=== PATIENT | male | born 1990 | race African-American/Black ===

== ENCOUNTER 2021-06-29 13:02 | Emergency (ER) | payer OTHER ==
[~2021-06-29] VITALS: Ht 187.9 cm; Wt 78.4 kg
--- NOTE | 2021-06-29 13:30 | ED Abdominal Pain ---
General Chief Complaint: Abdominal/GI Problems Stated Complaint: ABDOMINAL PROTRUSION/PAIN Source of Information: Patient Exam Limitations: No Limitations History of Present Illness Date Seen by Provider: Jun 29, 2021 Time Seen by Provider: 13:17 Initial Comments 31-year-old male with no significant medical history that is current inmate coming in due to left lower abdominal pain from a hernia. He says he has had a hernia for 4 months and it intermittently hurts him. Throbbing pain that is moderate. Nothing seems to make it better or worse. No nausea or vomiting. He is having normal bowel movements. He is otherwise denying any other acute complaints. Allergies and Home Medications Allergies Coded Allergies: No Known Drug Allergies (Unverified , 06/29/21) Patient Home Medication List Home Medication List Reviewed: Yes Review of Systems Review of Systems Constitutional: No fever EENTM: No Blurred Vision Respiratory: Denies Cough, Denies Shortness of Air Gastrointestinal: Abdominal Pain; Denies Constipated, Denies Diarrhea, Denies Nausea, Denies Vomiting Genitourinary: Denies Frequency Musculoskeletal: No back pain, No joint pain Skin: No rash Psychiatric/Neurological: Denies Anxiety, Denies Depressed Endocrine: No Symptoms Reported Hematologic/Lymphatic: No Symptoms Reported All Other Systems Reviewed Negative Unless Noted: Yes Past [id number] Hx Patient Social History Tobacco Use?: No Physical Exam Vital Signs Capillary Refill : Height/Weight/BMI Height: '" Weight: lbs. oz. kg; BMI Method: General Appearance: WD/WN, no apparent distress HEENT: PERRL/EOMI, normal ENT inspection, pharynx normal Neck: non-tender, full range of motion, supple, normal inspection Respiratory: chest non-tender, lungs clear, normal breath sounds, no respiratory distress, no accessory muscle use Cardiovascular: regular rate, rhythm, no edema, no murmur Gastrointestinal: normal bowel sounds, non tender, soft; No distended, No guarding, No rebound; hernia Extremities: normal range of motion, non-tender, normal inspection, no pedal edema, no calf tenderness Back: normal inspection, no CVA tenderness Male: normal genitalia; No erythema, No testicular tenderness; other (Reducible inguinal hernia) Neurologic/Psychiatric: no motor/sensory deficits, alert, normal mood/affect Skin: normal color Lymphatic: no adenopathy Progress/Results/Core Measures Progress Progress Note : Progress Note 31-year-old male in the emergency department for a hernia that is been there for 4 months that intermittently hurts him. No pain at this time. ABCs were intact and vitals were stable on presentation. He has a reducible inguinal hernia on exam with a associate curator in the room. Testicles are nontender. Genitalia otherwise appear normal with no discharge. No concerns for STI. He has no signs of obstruction clinically. I believe he is stable for discharge with outpatient follow-up with a general surgeon. He was sent home with strict return precautions. Departure Impression Primary Impression: Inguinal hernia Qualified Codes: K40.90 - Unilateral inguinal hernia, without obstruction or gangrene, not specified as recurrent Disposition: 01 HOME, SELF-CARE Condition: Stable Departure-Patient Inst. Decision time for Depature: 13:29 Referrals: PEGGY MARROQUIN,LOCAL PHYSICIAN (PCP) Primary Care Physician Patient Instructions: Inguinal and Femoral (Groin) Hernias Add. Discharge Instructions: You were seen in the emergency department for hernia that is not obstructive. Please schedule an appointment with Dr. Marroquin within the next couple of weeks. Take ibuprofen 600 mg every 6 hours for pain as needed. If you have any problems where you are unable to go to the bathroom such as pooping or unable to pass gas and you are having increasing abdominal pain with nausea and vomiting, then you will need to go to the emergency department. All discharge instructions reviewed with patient and/or family. Voiced understanding. WINNIE CHONG MD Jun 29, 2021 13:30
[2021-06-29 13:35] VITALS: BP 118/75
--- OUTSIDE RECORDS SUMMARY | 2021-06-29 20:41 | XMS REPORT ---
Author Author [facility] Address Unknown Phone Unavailable Care Team Providers Care Surgical Instruments Inspector Name Role Phone Migration, Doctor Unavailable Unavailable PROBLEMS Type Condition ICD9-CM Code [id number] Code Onset Dates Condition S tatus W/U Status Risk SNOMED Code Notes Problem Allergic rhinitis, cause unspecified 477.9 Active 75334267 ALLERGIC RHINITIS CAUSE UNSPECIFIED Problem Unspecified episodic mood disorder 296.90 Active 330793148 MOOD DISORDER Problem Postnasal drip 784.91 Active 50684889 POSTNASAL DRIP Problem Unspecified gastritis and ga stroduodenitis without mention of hemorrhage 535.50 Active 882397482 GASTRITIS UNSP EC ALLERGIES No Information ENCOUNTERS from 1992 to 2021-05-06 Encounter Location Date Provider Diagnosis [facility] [address] [facility] [id number] [place] [address] Feb, Doctor Migration IMMUNIZATIONS No Information SOCIAL HISTORY Sex Assigned At : Social History Observation Description Sex Assigned At Unknown REASON FOR REFERRAL No Information VITAL SIGNS No information MEDICATIONS Medication SIG (Take, Route, Frequency, Duration) Notes Start Da te End Date Status trazodone 150 mg take 1 tablet by Oral route 1 time per day at bedtime Take at HS [facility] Jun, Active Famotidine 20 mg take 1 tablet (20 mg) by oral route 2 times per day [facility] Jun, Active Depakote 500 mg 1 tablet by Oral route 3 times per day [facility] Jun, Active Amoxicillin 500 mg 1 capsule by Oral route 3 times per day for 10 days [facility] Jan, Active Omeprazole 20 mg take 1 capsule (20 mg) by oral route onc e daily before a meal [facility] Jun, Active PROCEDURES No Information RESULTS No Results REASON FOR VISIT [facility] [place] [facility] Goals Section No Information Health Concerns No Information MEDICAL EQUIPMENT No Information MENTAL STATUS No Information FUNCTIONAL STATUS No Information ASSESSMENTS No Information PLAN OF TREATMENT No Information Insurance Providers Payer Name Payer Address Payer Phone Insured Name Patient Relati onship to Insured Coverage Start Date Coverage End Date [facility] [address] [facility] [id number] Zac Pollard self
== END 2021-06-29 13:35 | disposition home or self-care (01) ==
LOC: EDUNIT# 13:02 → ER FS 13:04
DX: K40.90 Unilateral inguinal hernia, without obstruction or gangrene, not specified as recurrent (principal)
CPT/HCPCS: 99283